=== PATIENT | male | born 1975 | race Two or more races ===

== ENCOUNTER 2024-08-10 08:53 | Emergency (ER) | payer OTHER, SELFPAY ==
[2024-08-10 09:10] VITALS: BP 175/109; BP 176/110; PULSE 90; RESP 18; TEMP 36.7; O2SAT 98
--- NOTE | 2024-08-10 09:35 | PD.EDRME ---
Rapid Medical Screening Exam RME Arrival date/time: 08/10/24 08:53 48-year-old male presents emergency department today send that he got 568 chemical in his right eye on Friday patient reports redness to the eye and irritation Chief Complaint: Eye Problems Vital signs: Vital Signs Temperature 98.0 F 08/10/24 09:10 Pulse Rate 90 08/10/24 09:10 Respiratory Rate 18 08/10/24 09:10 Blood Pressure 175/109 H 08/10/24 09:10 Pulse Oximetry (%) 98 08/10/24 09:10 Oxygen Delivery Method Room Air 08/10/24 09:10
--- NOTE | 2024-08-10 12:31 | PD.EDADULT ---
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 Patient works the night order selector. Patient states he had splashed on his eye. Patient states since then he has had puffy eye with crust on it in the morning. Patient states he had intermittent blurred vision but currently has none. Patient states the localized sensation is as if he had sand in his eye. Patient denies any loss of vision or eye pain. RME / HPI RME / HPI narrative: 08/10/24 08:53 48-year-old male presents emergency department today send that he got 568 chemical in his right eye on Friday patient reports redness to the eye and irritation Related Data Home Medications ?Medication ?Instructions ?Recorded ?Confirmed indomethacin 50 mg rectal 50 mg MN TID 06/03/22 06/03/22 suppository prednisone 20 mg tablet 40 mg PO QDAY 06/03/22 06/03/22 Previous Rx's ?Medication ?Instructions ?Recorded cephalexin 500 mg capsule 500 mg PO Q8H #20 caps 06/04/22 tobramycin 0.3 % eye drops 1 drp ophthalmic (eye) Q4H #5 mL 08/10/24 Allergies Allergy/AdvReac Type Severity Reaction Status Date / Time NKA* Allergy Uncoded 08/10/24 08:56 Review of Systems Review of Systems Narrative Review of Systems: GEN: No fever, no chills, no weight loss EYES: No discharge, no visual changes, no pain HEENT:+ Right eye pain, no ear pain, no congestion, no sore throat PULM: No shortness of breath, no cough, no congestion CV: No chest pain, no dyspnea on exertion, no palpitations GI: No nausea, no vomiting, no diarrhea, no pain, no constipation : No frequency, no urgency, no dysuria MUSC/SKEL: No joint pain, no back pain SKIN: No rash PSYCH: No hallucinations, no depression HEME/LYMPH: No easy bleeding or bruising tendencies NEURO: No weakness, no headache Past Medical History Past Medical History NEUROLOGIC: Negative Neurological Disorders or Seizures CARDIAC: Negative Cardiac Disorders or Congestive Heart Failure RESPIRATORY: Negative Chronic Obstructive Pulmonary Disease (COPD) GASTROINTESTINAL: Negative Gastrointestinal Disorders GENITOURINARY: Negative Genitourinary Disorders or Renal Disease MUSCULOSKELETAL: Negative Musculoskeletal Disorders ENDOCRINE: Negative Endocrine Disorders, Diabetes Mellitus Type 1 or Diabetes Mellitus Type 2 HEMATOLOGIC: Negative Blood Disorders OTHER HISTORY: Positive Hospitalization (6 years ago admitted for HECTOR had HD for 6 weeks); Negative Autoimmune Disease, Blood Transfusions, Blood Transfusion Reaction, Anesthesia Reactions, MRSA, Clostridium Difficile or Cancer Family History FAMILY HISTORY: Negative Family Psychiatric Problems, Family Respiratory Disorders, Family Cardiac Disorders, Family Gastrointestinal Problems, Family Cancer, Family Surgery or Family Anesthesia Reaction Social History SMOKING STATUS: Never smoker ED Exam Narrative Physical exam: [General: Mild is comfort but not in any acute distress Head normocephalic HEENT: Eyes: Right eye sclera is injected, under fluorescein dye cornea is clean dry and intact no abrasions induration or ulceration. No injected conjunctiva. No foreign body. No dye in the anterior chamber. EOMs are intact. Left eye is unremarkable. Although the subsystems of HEENT are within acceptable limits Neck is supple nontender Chest equal chest rise nontender to palpation Respiratory: Clear to auscultation no wheezes crackles or rubs CV: Rate rhythm is regular no murmurs rubs or clicks Skin: Intact no petechiae rash induration ulceration or crepitus Extremities: Moving all extremity against resistance cap refill less than 2 seconds neurosensory intact Neuro: Awake alert oriented x3 Glascow coma 15 no focal deficits] Course Quality Measures none Orders Category Date Time Status ED Eye Irrigation ONCE Care 08/10/24 09:35 Active Diamond Lamp to Bedside X1 Care 08/10/24 09:35 Active Fluorescein Sodium [[id number]] Med 08/10/24 09:35 Discontinued 1 mg RIGHT EYE X1 ONE TETRACAINE Op Erni 0.5% [Pontocaine Op Erin 0.5%] Med 08/10/24 09:35 Discontinued 1 drop RIGHT EYE X1 ONE Vital Signs Vital signs: Vital Signs Temperature 98.0 F 08/10/24 09:10 Pulse Rate 90 08/10/24 09:10 Respiratory Rate 18 08/10/24 09:10 Blood Pressure 175/109 H 08/10/24 09:10 Pulse Oximetry (%) 98 08/10/24 09:10 Oxygen Delivery Method Room Air 08/10/24 09:10 Discharge Plan Plan Patient Disposition: HOME (Self Care) Patient condition on transfer: Stable Prescriptions/Referrals Prescriptions/Med Rec: New tobramycin 0.3 % drops 1 drp ophthalmic (eye) Q4H Qty: 5 0RF No Action indomethacin 50 mg Suppository 50 mg MN TID prednisone 20 mg Tablet 40 mg PO QDAY cephalexin 500 mg capsule 500 mg PO Q8H Qty: 20 0RF Referrals: No Primary/Family,Physician [Primary Care Provider] - In 1 week [place] [Referring Provider] - In 1 week Problem List Clinical Impression: Corneal irritation of right eye Patient/Caregiver Discharge Instructions Other Activity Instructions:: Use the drops every 4 hours until it is gone follow-up with the eye doctor, make sure you wear safety glasses at all times. Education Materials: [facility] [employer] [facility] [employer] Print Language: Finnish Stand Alone Forms: [facility]rystle Award Info., Patient Portal Info Letter, Work/School Release PA/ELECTRICIAN ASSISTANT Supervising Physician PA/ELECTRICIAN ASSISTANT Supervising Physician: Benjamin Sandoval ENP MDM Clinical Information Provided by: patient Medical Records reviewed [facility] Meds/Rx considered, not ordered None Labs/Rad/Tests considered, not ordered None EKG EKG not done Labs Labs: none Imaging Imaging Interpretation(s): Patient has eye irritation appears there is no foreign abrasion foreign body ulceration of the cornea. This time patient be discharged home to follow-up with ophthalmology. Patient will be started on tobramycin Medication Administration(s) Medication Administration History Discontinued Medications Fluorescein Sodium (Fluorescein Sod 1 Mg Strp) 1 mg RIGHT EYE X1 ONE Stop: 08/10/24 09:36 Tetracaine HCl (Tetracaine Pf Op Erin 0.5% 4 Ml Drpette) 1 drop RIGHT EYE X1 ONE Stop: 08/10/24 09:36 None Diagnosis Differential Diagnosis ED Complaint MDM: Keratitis, foreign abrasion, foreign body of the cornea corneal ulceration
[2024-08-10] MEDS: TETRACAINE PF OP SOL 0.5% 4 ML DRPETTE 1 DROP RIGHT EYE (12:40)
[2024-08-10] MEDS: FLUORESCEIN SOD 1 MG STRP RIGHT EYE (12:40)
== END 2024-08-10 12:59 | disposition home or self-care (01) ==
PROVIDERS: Emergency Provider Emergency Medicine
DX: H57.89 Other specified disorders of eye and adnexa (principal)
CPT/HCPCS: 99283